=== PATIENT | female | born 1935 | race Two or more races ===

== ENCOUNTER → 2018-08-07 | Emergency (ER) | payer OTHER ==
[~2018-08-07] VITALS: Ht 152.4 cm; Wt 77.1 kg
[~2018-08-07] MED LIST: ALDACTONE25 MG PO; ASMANEX0.24 G1 IH; CARDIZEM CD300 MG PO; CARVEDILOL25 MG PO; COUMADIN2 MG PO; COUMADIN4 MG PO; COUMADIN5 MG PO; COZAAR100 MG PO; COZAAR25 MG PO; FLUTICASONE PROPIONATE; HUMULIN 70/30 V10 ML SQ; HUMULIN 70/30 V10 ML SUBCUTANEO; HYZAAR 100-251 UDTAB PO; IMDUR30 MG PO; KOMBIGLYZE XR1 EAC1 PO; LASIX20 MG PO; METFORMIN HCL1000 MG PO; METFORMIN HCL850 MG PO; PEPCID40 MG PO; SIMVASTATIN40 MG PO; SPIRIVA HANDIHALER IH; SYNTHROID88 MCG PO; VITAMIN D5000 UNIT PO; XOPENEX0.63 MG/3 IH; ZETIA10 MG PO; ZOCOR80 MG PO
== END | disposition home or self-care (01) ==
LOC: ER 16:06
DX: J11.1 Influenza due to unidentified influenza virus with other respiratory manifestations (principal)

== ENCOUNTER 2019-04-11 14:51 | Emergency (ER) | payer OTHER ==
[~2019-04-11] VITALS: Ht 160 cm; Wt 74.8 kg
== END 2019-04-11 19:55 | disposition home or self-care (01) ==
LOC: ER 14:51
DX: J44.9 Chronic obstructive pulmonary disease, unspecified (principal); M54.2 Cervicalgia

== ENCOUNTER 2019-07-24 03:05 | Inpatient (IN) | payer OTHER ==
[~2019-07-24] VITALS: Ht 152.4 cm; Wt 72.6 kg
--- NOTE | 2019-07-24 03:25 | NUR ---
PACINTE ALERTAA,CTIVA Y ORIENTADA,ACOMPANADA DE HIJO.SE OBSERVA SUMAMENTE ANSIOSA.SHILPA DE DOLOR.
--- NOTE | 2019-07-24 04:18 | NUR ---
MRS. LEE EDCUA A PTE SOBRE T XMEDICO ESTA REFIERE ENTENDR.R SE KRYSTYNA MUESTRAS DE LAB UTILIZANDO MEDIDAS ASEPTICAS. SE COLOCA H/L A PTE LE BREANNE SE ENCUENTRA APTENT ELBIRE DE EDEMA Y ENROJECIMIENTO. PTE SE CONTINAU MONITORIANDO POR CAMBIOS.
--- NOTE | 2019-07-24 08:15 | NUR ---
SE RECIBE PTE ALERTA Y CONCIENTE POR 3 EN MARAH CON BARANDAS ELEVADA Y TIMBRE ACCESIBLE SE OBSERVA H/L PATENTE Y SHILPA DE EDEMA PTE NO PRESENTA DOLOR AL MOMENTO ALFREDO ORDENADO PTE SE MANTIENE EN OBSERVACION Y BAJO TRATAMIENTO EN ESPERA DEL TC FRASER
== END 2019-07-28 13:24 | disposition home or self-care (01) | DRG 190 ==
LOC: ER 03:05 → SEC-K 12:22 → MEDJ 19:17
PROVIDERS: ADMIT Internal Medicine
PROC: 4A033R1 Measurement of Arterial Saturation, Peripheral, Percutaneous Approach (ICD-10-PCS; principal; 2019-07-24)
PROC: 3E0F7GC Introduction of Other Therapeutic Substance into Respiratory Tract, Via Natural or Artificial Opening (ICD-10-PCS; 2019-07-24)
DX: J44.1 Chronic obstructive pulmonary disease with (acute) exacerbation (principal); I50.43 Acute on chronic combined systolic (congestive) and diastolic (congestive) heart failure; N39.0 Urinary tract infection, site not specified; J98.11 Atelectasis; J45.40 Moderate persistent asthma, uncomplicated; J20.9 Acute bronchitis, unspecified; I25.10 Atherosclerotic heart disease of native coronary artery without angina pectoris; I11.0 Hypertensive heart disease with heart failure; I48.0 Paroxysmal atrial fibrillation; E87.5 Hyperkalemia; E11.65 Type 2 diabetes mellitus with hyperglycemia; E03.8 Other specified hypothyroidism; K57.30 Diverticulosis of large intestine without perforation or abscess without bleeding; I69.320 Aphasia following cerebral infarction; Z79.4 Long term (current) use of insulin; Z79.01 Long term (current) use of anticoagulants